=== PATIENT | female | born 1965 | race Caucasian/White ===

== ENCOUNTER 2020-02-18 07:59 | Emergency (ER) | payer OTHER ==
[~2020-02-18] VITALS: Ht 170.2 cm; Wt 100.0 kg
[2020-02-18 08:04] VITALS: BP 125/76
[2020-02-18] MEDS ORDERED: AMLO10TA7 PO (08:11)
[2020-02-18] MEDS ORDERED: HYDR-1475 PO (08:11)
[2020-02-18] MEDS ORDERED: LISI-662 PO (08:11)
[2020-02-18] MEDS ORDERED: LIDOCAINE/PF 1% 2 ML VIAL IM ONE (08:30)
[2020-02-18] MEDS ORDERED: CefTRIAXone SODIUM 1 GM/VIAL IM ONE (08:30)
== END 2020-02-18 09:00 | disposition home or self-care (01) ==
LOC: EMS 08:05
DX: J02.9 Acute pharyngitis, unspecified (principal); H92.01 Otalgia, right ear; M79.10 Myalgia, unspecified site
CPT/HCPCS: 96372; 99283; J0696; J3490

== ENCOUNTER 2025-06-19 00:56 | Emergency (ER) | payer OTHER ==
[~2025-06-19] VITALS: Ht 160 cm; Wt 118.2 kg
[~2025-06-19 00:56] MED LIST: AMLO-258 PO; HYDR25TA2 PO; LISI-894 PO
[2025-06-19 01:07] VITALS: BP 148/78; PULSE 88; RESP 20; TEMP 98.2; O2SAT 96
[2025-06-19] MEDS ORDERED: TRAM50TA5 PO (03:45)
[2025-06-19] MEDS: KETOROLAC TROMETHAMINE 30 MG/ML VIAL IM ONE (03:50)
== END 2025-06-19 04:06 | disposition home or self-care (01) ==
LOC: EMS 00:57
DX: S83.8X2A Sprain of other specified parts of left knee, initial encounter (principal); I10 Essential (primary) hypertension; Z79.899 Other long term (current) drug therapy; X50.1XXA Overexertion from prolonged static or awkward postures, initial encounter; Y93.89 Activity, other specified; Y92.89 Other specified places as the place of occurrence of the external cause; Y99.8 Other external cause status
CPT/HCPCS: 99283; 73562; 96372; J1885